=== PATIENT | female | born 1990 | race American Indian/Alaskan Native ===

== ENCOUNTER 2023-04-30 23:13 | Emergency (ER) | payer MEDICAID ==
[~2023-04-30] VITALS: Ht 154.9 cm; Wt 94.0 kg
[2023-04-30] MEDS ORDERED: CefTRIAXone 1000mg IM Kit (w/lidocaine diluent) IM ONE (23:30)
[2023-04-30] MEDS ORDERED: CLIN300C54 PO (23:41)
[2023-04-30 23:57] VITALS: BP 147/93; PULSE 98; RESP 17; TEMP 98.5; O2SAT 97
== END 2023-05-01 00:12 | disposition home or self-care (01) ==
LOC: ER 23:14
DX: K02.9 Dental caries, unspecified (principal); Z88.2 Allergy status to sulfonamides
CPT/HCPCS: 96372; 99283; J0696

== ENCOUNTER 2023-07-09 11:18 | Emergency (ER) | payer MEDICAID ==
[~2023-07-09] VITALS: Ht 154.9 cm; Wt 90.8 kg
[2023-07-09] MEDS: LORazepam 1 MG tablet PO ONE (12:50)
[2023-07-09] MEDS ORDERED: HYDR-3686 PO (13:04)
[2023-07-09] MEDS ORDERED: METF-438 PO (13:08)
[2023-07-09 13:22] VITALS: BP 127/77; PULSE 84; RESP 16; TEMP 98.8; O2SAT 94
== END 2023-07-09 13:25 | disposition home or self-care (01) ==
LOC: ER 11:19
DX: E11.65 Type 2 diabetes mellitus with hyperglycemia (principal); F41.9 Anxiety disorder, unspecified; R00.2 Palpitations; Z88.2 Allergy status to sulfonamides; Z79.899 Other long term (current) drug therapy; Z79.84 Long term (current) use of oral hypoglycemic drugs
CPT/HCPCS: 82948; 93005; 99284

== ENCOUNTER 2023-07-18 07:20 | Emergency (ER) | payer MEDICAID ==
[~2023-07-18] VITALS: Ht 154.9 cm; Wt 86.6 kg
[~2023-07-18 07:20] MED LIST: HYDR-3686 PO; METF-438 PO
[2023-07-18 08:10] VITALS: TEMP 98.1
[2023-07-18 09:17] VITALS: BP 125/75; PULSE 77; O2SAT 97
[2023-07-18] MEDS ORDERED: ketorolac trometh. 30mg/ml inj. IM ONE (10:20)
[2023-07-18 10:32] VITALS: RESP 16
[2023-07-18] MEDS: ketorolac tromethamine 15mg/ml inj. IM ONE (10:32)
== END 2023-07-18 10:44 | disposition home or self-care (01) ==
LOC: ER 07:21
DX: F41.9 Anxiety disorder, unspecified (principal); M25.512 Pain in left shoulder; E11.9 Type 2 diabetes mellitus without complications; Z88.2 Allergy status to sulfonamides; Z79.899 Other long term (current) drug therapy
CPT/HCPCS: 71045; 93005; 96372; 99283; J1885

== ENCOUNTER 2024-07-26 10:29 | Emergency (ER) | payer MEDICAID ==
[~2024-07-26] VITALS: Ht 154.9 cm; Wt 78.9 kg
[~2024-07-26 10:29] MED LIST changes: -HYDR-3686 PO
[2024-07-26 10:59] LABS: BASOPHILS # (AUTO) 0.1 X10'3 (0-0.2); BASOPHILS % (AUTO) 0.7 % (0-1); EOSINOPHILS # (AUTO) 0.3 X10'3 (0-0.9); EOSINOPHILS % (AUTO) 3.6 % (0-6); HEMATOCRIT 44.6 % (35.0-45.0); HEMOGLOBIN 15.2 g/dl (12.0-16.0); LYMPHOCYTES # (AUTO) 2.5 X10'3 (1.1-4.8); LYMPHOCYTES % (AUTO) 27.1 % (21-51); MEAN CORPUSCULAR HEMOGLOBIN 30.2 PG (27.0-31.0); MEAN CORPUSCULAR HGB CONC 34.2 g/dL (33.0-36.5); MEAN CORPUSCULAR VOLUME 88.2 FL (78-98); MEAN PLATELET VOLUME 6.7 FL (7.4-10.4); MONOCYTES # (AUTO) 0.4 X10'3 (0-0.9); MONOCYTES % (AUTO) 3.8 % (2-12); NEUTROPHILS # (AUTO) 5.9 X10'3 (1.8-7.7); NEUTROPHILS % (AUTO) 64.8 % (42-75); PLATELET COUNT 299 X10'3 (140-440); RED BLOOD COUNT 5.05 X10'6 (4.20-5.60); RED CELL DISTRIBUTION WIDTH 13.3 % (11.5-14.5); WHITE BLOOD COUNT 9.2 X10'3 (4.5-11.0)
[2024-07-26 11:15] LABS: ALANINE AMINOTRANSFERASE 33 U/L (12-78); ALBUMIN 4.2 G/DL (3.4-5.0); ALBUMIN/GLOBULIN RATIO 1.3 (1.1-1.5); ALKALINE PHOSPHATASE 72 IU/L (46-116); ANION GAP 10 (8-16); ASPARTATE AMINO TRANSFERASE 20 U/L (10-37); BILIRUBIN,TOTAL 0.4 MG/DL (0.1-1.0); BLOOD UREA NITROGEN 9 MG/DL (7-18); BUN/CREATININE RATIO 13.4 (10.0-20.0); CALCIUM 8.9 MG/DL (8.5-10.1); CHLORIDE 107 MMOL/L (99-107); CREATININE 0.67 MG/DL (0.40-0.90); GLUCOSE 151 MG/DL (70-104); POTASSIUM 3.8 MMOL/L (3.5-5.1); SODIUM 141 MMOL/L (135-145); TOTAL CARBON DIOXIDE 23.8 MMOL/L (24-32); TOTAL PROTEIN 7.5 G/DL (6.4-8.2); eCRCL 89 ML/MIN; eGFR > 90 ML/MIN
[2024-07-26 11:21] LABS: PRO BRAIN NATRIURETIC PEPTIDE < 30 PG/ML (0-125)
[2024-07-26 13:01] VITALS: BP 127/76; PULSE 81; RESP 16; TEMP 97.9; O2SAT 99
== END 2024-07-26 13:07 | disposition home or self-care (01) ==
LOC: ER 10:29
DX: R00.2 Palpitations (principal); R12 Heartburn; E11.9 Type 2 diabetes mellitus without complications; Z88.2 Allergy status to sulfonamides
CPT/HCPCS: 36415; 80053; 83880; 84484; 85025; 93005; 99284